=== PATIENT | male | born 1960 | race Caucasian/White ===

== ENCOUNTER 2016-10-16 09:52 | Outpatient (CLI) | payer OTHER ==
[~2016-10-16 09:52] MED LIST: ALBUTEROL HFA60 DOSE IN; ASPIRIN ADULT L81 M1 PO; FLOVENT HFA220 MCG INH; LISINOPRIL20 MG PO; METFORMIN HCL1000 MG PO; METOPROLOL SUCC25 MG PO; SIMVASTATIN10 MG PO; TRAMADOL HCL50 MG PO
--- NOTE | 2016-10-16 10:49 | DIAGNOSTIC IMAGING REPORT ---
PROCEDURE: XR CHEST 2 VIEW INDICATION: PRE OP TECHNIQUE: PA and lateral views. COMPARISON: Chest 11/13/2014 and 02/08/2010 FINDINGS: Lungs are clear. Heart and mediastinum are normal. Thorax is normal. Sternotomy wires. There is an old T12 compression fracture which is unchanged. IMPRESSION: 1. No acute disease
[2016-10-17] MEDS ORDERED: VICODIN EQUIVAL1 TAB PO (12:29)
== END 2016-10-16 23:00 ==
LOC: RT SRH 09:52
DX: Z01.818 Encounter for other preprocedural examination (principal); Z01.812 Encounter for preprocedural laboratory examination; E11.9 Type 2 diabetes mellitus without complications
CPT/HCPCS: 90004; 90074; 90100; 95059

== ENCOUNTER 2016-10-17 07:43 | Day surgery (SDC) | payer OTHER ==
--- NOTE | 2016-10-17 08:46 | NUR ---
PRE OP INSTRUCTIONS GIVEN AND SAFETY ISSUES DISCUSSED PT HAD QUESTIONS ANSWERED PT CONFIRMED PROCEDURE PT VERIFIED SIGNATURE
--- NOTE | 2016-10-17 11:04 | Preoperative Progress Note ---
Preop Note Details Current Status: No Changes Physical Exam: No Changes Necessity: Still desired/necessary Other: CV Reviewed, Respiratory Reviewed, Review ROSA notes & Vitals, Took metoprolol with sips water o/w NPO p MN
--- NOTE | 2016-10-17 11:40 | NUR ---
PT INTERVIEWED IN PREOP HOLDING. QUESTIONS ASKED AND ANSWERED AND PT INDICATED UNDERSTANDING OF PROCEDURE. HAIR ON LEFT WRIST CLIPPED PRIOR TO ENTRY INTO THE OR.
--- NOTE | 2016-10-17 12:21 | Postoperative Progress Note ---
Postop Progress Note Preoperate Diagnosis: L volar wrist ganglion cyst Postoperative Diagnosis: same Surgeon: Brodie Oneal MD Anesthesia: LMA Findings: See dictation Procedure: Excision L volar wrist mass. Complications? No Condition: Stable EBL: Minimal Fluid(s): 750 mL Blood Administered: None Specimen(s) removed? Yes Specimen removed/disposition: Volar wrist mass Grafts or Implants? No . (See nursing notes for details of grafts/implants)
[2016-10-17] MEDS ORDERED: VICODIN EQUIVAL1 TAB PO (12:29)
--- NOTE | 2016-10-17 12:29 | NUR ---
REC'D FROM OR; SPONT RESP. HOB ELEVATED 30 DEGREES. LMA DC'D- TOLERATED WELL.
--- NOTE | 2016-10-17 12:33 | Provider's Discharge Care Plan ---
Problem, Goal, Plan Problem List 1. Ganglion cyst of volar aspect of left wrist Goals: No readmissions Instructions: Follow up as directed, Increase activity level, Take meds as directed
--- NOTE | 2016-10-17 12:36 | NUR ---
AWAKE AND ALERT; SURGEON TALKING TO PT RE FINDINGS AND POST OP CARE. CMS=GOOD.
--- NOTE | 2016-10-17 13:05 | NUR ---
PT RETURNED FROM PAUC AT 1245 LEFT HAND ELEVATED CAP REFILL LESS THAN 3 SEC PT ABLE TO MOVE FINGERS
--- NOTE | 2016-10-17 13:31 | NUR ---
PT STATED WRIST STARTING TO HURT. VICODIN GIVEN AFTER FOOD
--- NOTE | 2016-10-17 13:43 | NUR ---
PT ASKING TO GO HOME REVIEWED DISCHARGE INSTRUCTIONS WRITTEN AND VERBAL PT EXPRESSED UNDERSTANDING PT DISCHARGED PER WC ACCOMPANIED BY FRIEND
--- NOTE | 2016-10-17 14:59 | OPERATIVE REPORT ---
DATE OF SURGERY: 10/17/2016 SURGEON: Brodie Oneal MD PREOPERATIVE DIAGNOSIS: 1. Left volar wrist ganglion cyst POSTOPERATIVE DIAGNOSIS: 1. Left volar wrist ganglion cyst PROCEDURE PERFORMED: 1. Excision left volar wrist mass ANESTHESIA: General via laryngeal mask airway. PATHOLOGY SPECIMEN: Left volar wrist mass. ESTIMATED BLOOD LOSS: Less than 750 mL. FLUIDS: Blood replacement: 750 mL intravenous crystalloid fluid. COMPLICATIONS: None apparent. CONDITION: Condition of the patient leaving the operating room was stable and satisfactory. 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 An MRI was obtained which was consistent with a volar ganglion cyst. It was in close proximity to blood vessels and tendons. He desired to have it excised to minimize the risk of recurrence with other treatment modalities. He understood the risks of injury to surrounding vessels, nerves, tendons, infection, recurrence, and general risks of surgery. He was cleared for surgery by his primary care doctor, having had a history of a bovine heart valve replacement. SURGICAL FINDINGS: Confirmed preoperative imaging. The mass was cystic and multiply lobulated, overlaid by a plexus of veins and adjacent to the radial artery and flexor carpi radialis tendon. It did not seem to track into the joint, but rather be associated with the nearby tendon sheaths. PLAN: The patient should remove the dressing in 2-3 days' time. Wash with soap and water gently, blot dry. Do not scrub, do not immerse. Apply a clean, dry bandage if there is any drainage or using a soiled environment. He has not been cleared to return to work yet due to his back surgery, but could return to work once the incision is well- healed. Return to clinic in approximately 2 weeks' time for suture removal and may return at the end of October for further evaluation and referral for his other hand pain, likely to our hand surgeon in [place]. He should call or return for any signs or symptoms of infection or thromboembolic disease. I have advised him to increase his enteric- coated aspirin to 325 mg twice daily for 6 weeks if he can tolerate it, given the small risk of thromboembolic disease. He should elevate the hand and ice as needed to control swelling. SURGICAL TECHNIQUE: The patient was identified in the preoperative holding area. Site was marked. History and physical exam were reviewed. There were no changes. He had no additional questions. Consent was reviewed. He was seen and interviewed by Anesthesia and nursing team members and brought back to the operating room where general anesthesia was administered with laryngeal mask airway and 2 g of cefazolin were given intravenously for antibiotic prophylaxis. Pneumatic compression devices were run on bilateral lower extremities for thromboembolic prophylaxis. The tourniquet was placed on the upper aspect of the left arm, which was then prepped with a Ramon wipe and ChloraPrep in a circumferential sterile fashion with a tourniquet to the tips of the fingers, draped free in a waterproof sterile fashion for surgery. A surgical pause was completed to confirm the correct patient, operative site, procedure, appropriate availability of instruments, and lack of allergies. We also confirmed the use of pneumatic compression devices for DVT prophylaxis. Everyone in the room, including surgical nursing and anesthetic team members, were in agreement we should proceed. The arm was elevated but not exsanguinated with an Esmarch, to allow better visualization of the vasculature. A tourniquet was inflated to 250 mmHg, where it remained for 26 minutes, until just prior to closure. The incision was made longitudinally over the mass, carried sharply through skin and dermis. A dissecting technique was used with Metzenbaum and tenotomy scissors through the soft tissues overlying the mass. Traversing veins were cauterized and divided. The mass was shelled out and tracked deep. We protected longitudinal structures and cauterized bleeding veins as necessary. Once the mass was completely excised, the wound was copiously irrigated. Additional hemostasis was obtained with electrocautery. The tourniquet was deflated. Hemostasis was obtained with pressure, and the wound was infiltrated with 0.25% Marcaine without epinephrine; a total of approximately 6 mL was utilized. It was then closed with inverted undyed 2-0 subdermal Vicryl sutures in interrupted fashion and 3-0 vertical mattress nylon sutures for the skin. Xeroform, 4 x 4, Conform and an Javi wrap compressive dressing. The patient was undraped, reversed from anesthesia and brought to the recovery room in stable and satisfactory condition, having tolerated the procedure well without apparent complication. All sponge, needle and instrument counts were reported correct prior to leaving the operating room.
== END 2016-10-17 13:48 | disposition home or self-care (01) ==
LOC: OR SRH 07:43 → OB SRH 07:46
PROVIDERS: Orthopaedic Surgery
PROC: 0LB60ZZ Excision of Left Lower Arm and Wrist Tendon, Open Approach (ICD-10-PCS; principal; 2016-10-17 09:30)
DX: M67.432 Ganglion, left wrist (principal); J45.909 Unspecified asthma, uncomplicated; Z95.3 Presence of xenogenic heart valve; E11.9 Type 2 diabetes mellitus without complications; Z79.84 Long term (current) use of oral hypoglycemic drugs; I10 Essential (primary) hypertension